=== PATIENT | female | born 1995 | race Caucasian/White ===

== ENCOUNTER 2018-05-03 21:25 | Emergency (ER) | payer OTHER ==
[~2018-05-03] VITALS: Ht 172.7 cm; Wt 77.2 kg
[2018-05-03 21:37] VITALS: BP 135/95
== END 2018-05-03 23:27 | disposition left against medical advice (07) ==
LOC: ER 21:25
DX: R06.02 Shortness of breath (principal); Z53.21 Procedure and treatment not carried out due to patient leaving prior to being seen by health care provider